=== PATIENT | female | born 1980 | race Two or more races ===

== ENCOUNTER 2017-11-02 16:36 | Emergency (ER) | payer SELFPAY ==
[~2017-11-02] VITALS: Ht 160 cm; Wt 59.0 kg
[2017-11-02 17:02] VITALS: BP 152/88
== END 2017-11-02 18:11 | disposition home or self-care (01) ==
LOC: ER 16:41
DX: R51 Headache (principal); R05 Cough; R09.81 Nasal congestion
CPT/HCPCS: 87400; 87804